=== PATIENT | male | born 1985 | race Caucasian/White ===

== ENCOUNTER 2017-01-27 07:39 | Day surgery (SDC) | payer BC ==
[~2017-01-27 07:39] MED LIST: ACETAMINOPHEN 1000MG/100 ML PREMIX IV ONE; CEFAZOLIN 2 Gram 50 ML IVPB ONE
[2017-01-27 07:57] LABS: BASO % 0.2 % (0-6); EOS % 1.9 % (0-6); HEMATOCRIT 47.6 % (42.0-52.0); LYMPH % 26.2 % (16-45); MEAN CELL VOLUME 94.1 fl (81-97); MEAN CORPUSCULAR HEMOGLOBIN 31.6 pg (27-33); MEAN CORPUSCULAR HGB CONC 33.6 g/dl (32-36); MEAN PLATELET VOLUME 11.2 fl (7.4-10.4); MONO % 9.7 % (0-9); PLATELET COUNT 181 K/uL (130-400); RED BLOOD COUNT 5.06 M/uL (4.40-5.70); RED CELL DISTRIBUTION WIDTH 12.4 % (11.5-14.5); WHITE BLOOD COUNT W/O DIFF 4.7 K/uL (4.2-12.2)
[2017-01-27] MEDS ORDERED: FENTANYL PF 100MCG/2ML VIAL IV ONE (14:00)
[2017-01-27] MEDS ORDERED: MIDAZOLAM HCL 2MG/2ML VIAL IV ONE (14:00)
[2017-01-27] MEDS ORDERED: LIDOCAINE 2% MDV (20MG/ML) 20ML VIAL IV ONE (14:00)
[2017-01-27] MEDS ORDERED: HYDROCODONE/APAP 5/325MG TABLET PO ONE (14:53)
[2017-01-27] MEDS ORDERED: BUPIVACAINE 0.25% W/EPI MPF 30ML VIAL IVP ONE (14:53)
--- NOTE | 2017-01-28 16:11 | Operative Note ---
DATE OF SURGERY: 01/27/17 PREOPERATIVE DIAGNOSIS: REDUCIBLE LEFT INGUINAL HERNIA. POSTOPERATIVE DIAGNOSIS: REDUCIBLE LEFT INGUINAL HERNIA, INDIRECT. OPERATION: OPEN LEFT INGUINAL HERNIORRHAPHY WITH MESH. SURGEON: RAZA ENG D.O. BARREL RIFLER BUTTON: Rafael VALDOVINOS INDICATIONS: The patient is a 32-year-old male who presented to the clinic with pain and bulging in his left inguinal region. He did have a reducible hernia on exam. We did discuss repair versus observation due to the symptomatic nature; he desired surgical intervention. The risks include; bleeding, infection, acute or chronic pain, and recurrence. He understood this fully. Therefore consent was signed and questions answered. PROCEDURE: He was taken to the Operating Room and placed in the supine position. General anesthesia was administered per the Department of Anesthesia. The patient's left inguinal region was shaved of hair and prepped and draped in the usual sterile fashion. Adequate time-out was performed, the side was confirmed, as well as identity. He did receive a preoperative antibiotic. At this time, the oblique region was anesthetized with a total of 5 mL of 0.25% Sensorcaine with Epinephrine. A block was done also medial to the /IS as well as at the level of the pubic tubercle. At this time, a 4 cm oblique incision was made and this was carried down through the subcutaneous tissues, through Kae's layer, to the aponeurosis external oblique. This was noted to be very thin and attenuated. At this time, a reji was made with the scalpel blade. This was enlarged through the superficial inguinal ring with Metzenbaum scissors. Care was taken not to injure the underlying ilioinguinal nerve or spermatic cord. At this time, superior and inferior flaps were created and a [place] was placed on the spermatic cord. This was dissected free from the underlying transversalis fascia and retracted laterally with the Irvin drain. The floor was inspected and noted to be free of any direct herniation. At this time, the cremasteric fibers were taken down. There was an indirect hernia noted. The patient also had a very dilated patulous deep inguinal ring. The hernia sac was dissected free from the cord structures and high ligation was done with 0 Vicryl. Due to the very extremely dilated nature of the deep inguinal ring, I did elect to place a large plug through this. This was sutured to the floor of the inguinal canal with 2-0 Vicryl. The conjoined tendon was closed over the plug with 2-0 Vicryl as well. At this time, a left-sided ProGrip mesh was obtained. This was trimmed to size and placed in the floor of the inguinal canal with excellent overlap of the pubic tubercle. Suture went at the level of the pubic tubercle. The mesh had been pre-notched to accompany the spermatic cord. The lateral triangle was protected with the lateral aspect of the mesh. Mesh was also sutured to the inguinal ligament. It was noted that the deep inguinal ring was still able to accompany a fingerbreadth of my small finger not making it too tight. At this time, the aponeurosis external oblique was closed over the cord with 2-0 Vicryl, Kae's layer was closed with 3-0 Vicryl , and the skin was closed with 4-0 Vicryl. FINDINGS AT THE TIME OF SURGERY: LEFT INGUINAL HERNIA, INDIRECT WITH VERY PATULOUS DEEP INGUINAL RING REPAIRED ABOVE. Raza Eng D.O. JOB NUMBER: [id number] MTDD
== END 2017-01-27 09:40 | disposition home or self-care (01) ==
LOC: SUR 07:39
PROVIDERS: ATTEND Surgery
DX: K40.90 Unilateral inguinal hernia, without obstruction or gangrene, not specified as recurrent (principal)
CPT/HCPCS: 85025; 49505; 00830; J3010; J0690